=== PATIENT | female | born 1985 | race Caucasian/White ===

== ENCOUNTER 2016-10-11 12:58 | Emergency (ER) | payer OTHER, BC ==
[2016-10-11 13:05] VITALS: TEMP 98.2; BMI 25.8
--- NOTE | 2016-10-11 13:42 | PDOC ---
History of Present Illness - General Chief Complaint: Vaginal Bleeding Stated Complaint: 7WKS , BLEEDING Time Seen by Provider: 10/11/16 13:24 History Source: Patient Exam Limitations: No Limitations - History of Present Illness Initial Comments: CHIEF COMPLAINT: 31 y/o , female with unknown LMP c/o vaginal bleeding yesterday. HISTORY OF PRESENT ILLNESS: The patient states she has had some passage of brown vaginal discharge that started yesterday and is getting worse. She denies any passage of clots. She went to the clinic today and they sent her here. The patient denies f/c, n/v/d, CP, SOB, abd pain, back pain, hematuria, dysuria. Vital signs on arrival are within normal limits. REVIEW OF SYSTEMS: GENERAL/CONSTITUTIONAL: No fever/chills. No weakness. No weight change. HEAD, EYES, EARS, NOSE AND THROAT: No change in vision. No ear pain or discharge. No sore throat. CARDIOVASCULAR: No chest pain or shortness of breath. RESPIRATORY: No cough, wheezing, or hemoptysis. GASTROINTESTINAL: No abd pain, nausea, vomiting, diarrhea. GENITOURINARY: No dysuria, frequency, or change in urination. +vaginal bleeding MUSCULOSKELETAL: No joint or muscle swelling or pain. No neck or back pain. SKIN: No rash or easy bruising. NEUROLOGIC: No headache, vertigo, loss of consciousness, or loss of sensation. PHYSICAL EXAM: GENERAL: The patient is awake, alert, and fully oriented, in no acute distress. She is well appearing and ambulatory. HEAD: Normal with no signs of trauma. ENT: Pupils equal, round and reactive to light, extraocular movements intact, sclera anicteric, conjunctiva clear. Neck supple. LUNGS: Clear to auscultation bilaterally. Normal excursion. No respiratory distress or use of accessory muscles. CV: RRR, S1/S2, no MRG. Cap refill < 2 sec. ABDOMEN: Soft, non-distended, non-tender even to deep palpation, no hepatomegaly or splenomegaly, no masses. VAGINAL: DEFERRED EXTREMITIES: Normal range of motion, no edema. NEUROLOGICAL: Normal speech, normal gait. CN II-XII grossly intact. PSYCH: Normal mood, normal affect. SKIN: Warm, dry, normal turgor, no rashes or lesions noted. Past History - Past Medical History Allergies/Adverse Reactions: Allergies Allergy/AdvReac Type Severity Reaction Status Date / Time No Known Allergies Allergy Verified 10/11/16 13:05 Home Medications: Ambulatory Orders NK [No Known Home Medication] 10/11/16 - Immunization History Immunization Up to Date: Yes - Psycho/Social/Smoking Cessation Hx Suicidal Ideation: No Smoking History: Never smoked Hx Alcohol Use: No Drug/Substance Use Hx: No *Physical Exam - Vital Signs Last Vital Signs Temp Pulse Resp BP Pulse Ox 98.2 F 72 20 110/66 98 10/11/16 13:03 10/11/16 13:03 10/11/16 13:03 10/11/16 13:03 10/11/16 13:03 ED Treatment Course - LABORATORY CBC & Chemistry Diagram: 10/11/16 14:22 10/11/16 14:22 Medical Decision Making - Medical Decision Making A/P: 31 y/o afebrile female with vaginal spotting since yesterday. Plan is as follows: 1. UA/culture 2. Labs 3. Transvaginal ultrasound Beta = 194,000 Transvaginal Ultrasound IMPRESSION: Single live intrauterine gestation of 9 weeks. Urine negative for UTI. Gave the patient her results. 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 The patient verbalizes understanding of all instructions, has no further questions and is awaiting discharge. *DC/Admit/Observation/Transfer Diagnosis at time of Disposition: Antepartum hemorrhage Qualifiers: Trimester: first trimester Qualified Code(s): O46.91 - Antepartum hemorrhage, unspecified, first trimester - Discharge Dispostion Disposition: HOME Condition at time of disposition: Good - Referrals Referrals: Valeria Vasquez MD [Primary Care Provider] - - Patient Instructions Printed Discharge Instructions: DI for Vaginal Bleeding During Additional Instructions: Discharge Instructions: -Your ultrasound showed a baby of 9 weeks gestation with HR of 185bpm -Please follow up with your ORNAMENTAL IRON WORKER HELPER within 1 week -Return to the ER with any worsening or concerning symptoms
--- NOTE | 2016-10-11 14:34 | PDOC ---
[id number] 98 10/11/16 13:03 10/11/16 13:03 10/11/16 13:03 10/11/16 13:03 10/11/16 13:03 - Physical Exam Comments: 10/11/16 14:34 The patient was examined by FARRUKH Domingo under my direct supervision. I personally evaluated the patient. I concur with the above findings and the plan of care. ED Treatment Course - LABORATORY CBC & Chemistry Diagram: 10/11/16 14:22 10/11/16 14:22 *DC/Admit/Observation/Transfer Diagnosis at time of Disposition: Vaginal bleeding in - Discharge Dispostion Disposition: HOME Condition at time of disposition: Good - Referrals Referrals: Valeria Vasquez MD [Primary Care Provider] - - Patient Instructions Printed Discharge Instructions: DI for Vaginal Bleeding During Additional Instructions: Discharge Instructions: -Your ultrasound showed a baby of 9 weeks gestation with HR of 185bpm -Please follow up with your ELECTRICIAN within 1 week -Return to the ER with any worsening or concerning symptoms
[2016-10-11 14:46] LABS: BASOPHIL 0.5 % (0-2.0); EOSINOPHIL 0.5 % (0-4.5); MCH 31.6 pg (25.7-33.7); MEAN CELL VOLUME 92.9 fl (80-96); MEAN PLT VOLUME 10.3 fl (7.5-11.1); NEUTROPHILS 70.2 % (42.8-82.8); PLATELET COUNT 217 K/MM3 (134-434); RDW 12.8 % (11.6-15.6); WHITE BLOOD COUNT 7.7 K/mm3 (4.0-10.0)
[2016-10-11 14:47] LABS: URINE APPEARANCE SLCLOUDY; URINE BILIRUBIN NEGATIVE (NEGATIVE); URINE COLOR YELLOW; URINE GLUCOSE (UA) NEGATIVE (NEGATIVE); URINE KETONE NEGATIVE (NEGATIVE); URINE NITRITE NEGATIVE (NEGATIVE); URINE PROTEIN NEGATIVE (NEGATIVE); URINE UROBILINOGEN NEGATIVE E.U./dl (0.2-1.0)
[2016-10-11 15:02] LABS: ALBUMIN 3.7 g/dl (3.4-5.0); ANION GAP 8 (8-16); BILIRUBIN,TOTAL 0.4 mg/dL (0.2-1.0); CALCIUM 8.3 mg/dL (8.5-10.1); CO2 25 mmol/L (21-32); CREATININE 0.5 mg/dL (0.55-1.02); GLUCOSE,RANDOM 72 mg/dL (74-106); SGOT/AST 8 U/L (15-37)
[2016-10-11 15:13] LABS: URINE BLOOD 1+ (NEGATIVE); URINE LEUK ESTERASE TRACE (NEGATIVE)
[2016-10-11 15:17] LABS: ALK PHOS 57 U/L (45-117); SGPT/ALT 17 U/L (12-78)
[2016-10-11 15:20] LABS: URINE BACTERIA MODERATE /hpf (NONE SEEN); URINE MUCUS FEW; URINE RBC 1 /hpf (0-3); URINE WBC 2 /hpf (3-5)
[2016-10-11 17:00] VITALS: BP 110/79; PULSE 74
== END 2016-10-11 16:59 | disposition home or self-care (01) ==
LOC: JER 12:58
DX: O46.91 Antepartum hemorrhage, unspecified, first trimester (principal); Z3A.09 9 weeks gestation of pregnancy
CPT/HCPCS: 36415; 76817-TC; 80053; 81003; 81015; 84702; 85025; 86850; 86900; 86901; 87086; 99284-25